=== PATIENT | female | born 2005 | race Caucasian/White ===

== ENCOUNTER 2024-05-23 20:44 | Emergency (ER) | payer MEDICAID, SELFPAY ==
[2024-05-23 20:45] VITALS: BP 147/94; PULSE 125; RESP 18; TEMP 37.7; O2SAT 99; BMI 46.0
[2024-05-23 20:49] VITALS: BP 135/96; PULSE 113; RESP 16; TEMP 37.1; O2SAT 99
[2024-05-23 21:14] LABS: Absolute Lymphocyte Count 1.54 X10^3/uL (0.83-4.51); Absolute Neutrophil Count 9.5 X10^3/uL (2.0-7.7); Basophil# 0.04 X10^3/uL; Basophil% 0.3 % (0-1); Eosinophil# 0.04 X10^3/uL; Eosinophils% 0.3 % (0-5); Hematocrit 39.3 % (37-47); Hemoglobin 12.9 g/dL (12.0-15.0); Lymphocyte # 1.54 X10^3/ul (0.83-4.51); Lymphocyte % 13.2 % (19-41); Mean Corp Hgb Conc 32.8 g/dL (32-36); Mean Corpuscular Hgb 28.9 pg (27.0-32.0); Mean Corpuscular Volume 88.1 fL (81-99); Mean Platelet Vol. 10.4 fl (6.2-12.0); Monocyte# 0.49 X10^3/uL; Monocyte% 4.2 % (0-10); NRBC Flagged by Analyzer 0 % (0-5); Neutrophil % 81.7 % (47-70); Platelet Count 202 K/mm3 (150-450); RBC Distribution Width CV 12.2 % (11.6-14.6); RBC Distribution Width SD 39.2 fl (35.1-43.9); Red Blood Count 4.46 M/mm3 (4.2-5.4); White Blood Count 11.7 K/mm3 (4.4-11.0)
[2024-05-23 21:31] LABS: Internal QC Validated? YES +Cl - CLEAR BKGD; Pregnancy, Serum, hCG Quali. NEGATIVE Negative; Record Kit Lot#, Serum Preg. 772476
[2024-05-23 21:33] LABS: ALB/GLOB Ratio 0.9 RATIO (0.9-2.4); AST(SGOT) 12 U/L (15-37); Alanine Aminotransfer ALT/SGPT 20 U/L (13-56); Albumin, Serum 3.5 g/dL (3.2-5.0); Alkaline Phosphatase 99 U/L (45-117); Anion Gap 7 (5-15); BUN 12 mg/dL (7-18); Calcium,Total 9.3 mg/dL (8.5-10.1); Chloride 105 mmol/L (98-107); EST Glomerular Filtration Rate 75 mL/min (>60); Est Glom Filt Rate - Afr Amer 90 mL/min (>60); Estimated Creatinine Clearance 132.27 ml/min; Globulin 4.1 g/dL (2.2-4.2); Glucose 104 mg/dL (74-106); Potassium 3.7 mmol/L (3.5-5.1); Protein, Total 7.6 g/dL (6.4-8.2); Sodium Level 137 mmol/L (136-145)
[2024-05-23 21:36] LABS: Lactic Acid 0.9 mmol/L (0.4-1.9)
[2024-05-23 21:37] LABS: Bacteria 0 SEEN /hpf (None Seen); Mucous, Urine 0 SEEN /hpf (<or=2+)
[2024-05-23 21:39] LABS: Color, Urine Red (Yellow); Glucose, Dipstick Normal (Normal); Ketone-Dipstick Negative (Negative); Leukocyte Esterase-Dipstick 500 /ul (Negative); Nitrite-Dipstick Negative (Negative); Occult Blood-Urine 250 /ul (Negative); Protein-Dipstick 100 mg/dl (Negative); Urine Bilirubin Dipstick Negative (Negative); Urine Clarity Cloudy (Clear); Urine Urobilinogen Normal (Normal)
[2024-05-23 21:49] VITALS: BP 140/91; PULSE 110; RESP 18; TEMP 36.9; O2SAT 99
--- NOTE | 2024-05-23 22:02 | EX.ED.DYSGE1 ---
HPI History of Present Illness Chief Complaint: Fever Informant: patient and parent Narrative Narrative: History of developmental disorder here with mother for evaluation recurrent fever. States 3 days ago while going to adult daycare had a fever 101. She went home that day was better by evening. Today patient reports headache, mother states rechecked her temperature is even had a temp of 101 again. Status post Advil and Tylenol after recheck temperature which was 100. No vomiting diarrhea. No cough. No muscle aches. Initial triage note reported patient stating it hurts to pee. However patient denies this in the room. No abdominal pain. There is been sick contacts at the adult daycare with a COVID outbreak. Mother did a rapid test at home which was negative. [facility] Medical History PDD (pervasive developmental disorder) Home Medications ?Medication ?Instructions ?Recorded ?Last Taken ?Type diphenhydramine HCl 25 mg capsule 25 mg PO 4X/DAY ##14 05/02/17 Unknown Rx (Banophen) famotidine 20 mg tablet (Pepcid) 20 mg PO BID #8 tabs 05/02/17 Unknown Rx prednisone 20 mg tablet 40 mg (2 x 20 mg) PO DAILY@0800 ##8 05/02/17 Unknown Rx cefdinir 300 mg capsule 300 mg PO Q12H #14 caps 05/23/24 Unknown Rx Allergy/AdvReac Type Severity Reaction Status Date / Time No Known Allergies Allergy Verified 05/23/24 20:45 Social History Smoking Status: Never smoker [facility] ED Constitutional Constitutional ED: Reports fever(s); Denies chills or sweats Eyes Eyes: Denies change in vision ENT ENT ED: Denies dysphagia or sore throat Cardiovascular Cardiovascular: Denies chest pain, leg edema, palpitations or racing heartbeat Respiratory/Chest Respiratory/Chest: Denies cough, dyspnea or dyspnea on exertion Gastrointestinal Gastrointestinal: Denies abdominal pain, diarrhea, nausea or vomiting Genitourinary Genitourinary ED: Denies dysuria, hematuria or urinary frequency Musculoskeletal Musculoskeletal: Denies back pain, extremity pain or neck pain Integumentary Denies rash or wounds Neurologic Neurologic: Reports headache(s); Denies paresthesias or weakness EXAM Physical Exam Const Vital Signs: 05/23/24 20:45 05/23/24 20:49 05/23/24 20:49 Temperature 99.9 F H 98.8 F Temperature Source Oral Oral Pulse Rate 125 H 113 H Respiratory Rate 18 16 Respiratory Effort Blood Pressure 147/94 H 135/96 H Blood Pressure Mean 111 109 Pulse Ox 99 99 Oxygen Delivery Method Room Air Room Air 05/23/24 21:46 05/23/24 21:49 05/23/24 23:29 Temperature 98.5 F 98.6 F Temperature Source Oral Pulse Rate 110 H 85 Respiratory Rate 18 16 Respiratory Effort Normal Blood Pressure 140/91 H 141/77 H Blood Pressure Mean 107 98 Pulse Ox 99 99 Oxygen Delivery Method Positive well nourished and well developed General Appearance ED: well developed and NAD HEENT Reports TM's clear and moist mucous membranes HEENT Narrative: Normal TMs, no posterior pharyngeal erythema. normocephalic and atraumatic Tympanic Membrane ED: Yes TM's clear Eyes EOMs intact bilaterally and conjunctivae normal General Eye ED: Yes normal appearance of both eyes Neck no lymphadenopathy and supple Neck Narrative: No meningismus General: Negative for tenderness Chest Wall Chest: Negative for tenderness Resp normal respiratory effort and normal air movement Effort and Inspection: symmetric chest movement; Negative for respiratory distress Cardio regular rhythm and no murmurs Rate: tachycardic Peripheral Pulses: pulses 2+ throughout GI normal to inspection, nondistended, normoactive bowel sounds and non-tender Palpation: Negative for guarding or rebound tenderness present Back/Spine no CVA tenderness and no thoracic nor lumbar tenderness Extremity normal to inspection General Extremety ED: Negative for edema or tenderness General Extremity: Negative for edema Neuro oriented x3, CN's II-XII intact bilaterally and no sensory deficits noted Sensorium / Orientation: awake and alert Skin no rashes or lesions noted and no wounds MDM MDM MDM Narrative Medical decision making narrative: Interventions / MDM: Differential diagnosis: Febrile illness, viral illness, UTI Diagnosis considered but do not suspect: No clinical meningitis My EKG interpretation: N/A Imaging independently reviewed and interpreted by myself: N/A External documents reviewed: N/A Test considered but not ordered:N/A ED course: Patient initial temp of 99 in the ED which improved without any additional treatment. Triage protocol labs ordered due to busy department white count 11.7 hemoglobin 12.9. Lactic acid 0.9. Creatinine 1.0. hCG negative. Awaiting urine results. Will send for PCR COVID flu and RSV testing. Heart rate noted at 110, will give gentle fluids. Urine positive for infection with noting gross hematuria. Mother reports she is on her menstrual period. With her reported fever and UTI, was treated for complicated UTI. Urine culture sent. She is covered with cefdinir. COVID, influenza, RSV was negative. Return precautions discussed with mother otherwise outpatient follow-up with her doctors. Re-evaluation: stable Disposition discussed with patient/family/significant other: Patient and mother Case discussed with consulting clinician: N/A This note was generated with [employer] dictation software. It may contain incorrect words, spelling, and punctuation that were not noted in checking the note before signing. Lab Data Attestation: I reviewed the patient's lab results. Labs: Laboratory Results - last 24 hr 05/23/24 05/23/24 21:05 21:16 WBC 11.7 H RBC 4.46 Hgb 12.9 Hct 39.3 MCV 88.1 MCH 28.9 MCHC 32.8 RDW Std Deviation 39.2 RDW Coeff of Johnna 12.2 Plt Count 202 MPV 10.4 Immature Gran % (Auto) 0.300 Neut % (Auto) 81.7 H Lymph % (Auto) 13.2 L [place] % (Auto) 4.2 Eos % (Auto) 0.3 Baso % (Auto) 0.3 Absolute Neuts (auto) 9.5 H Absolute Lymphs (auto) 1.54 Nucleated RBC % 0 Sodium 137 Potassium 3.7 Chloride 105 Carbon Dioxide 25.0 Anion Gap 7 BUN 12 Creatinine 1.00 Estim Creat Clear Calc 132.27 Est GFR (MDRD) Af Amer 90 Est GFR (MDRD) Non-Af 75 BUN/Creatinine Ratio 12.0 Glucose 104 Lactic Acid 0.9 Calcium 9.3 Total Bilirubin 0.50 AST 12 L ALT 20 Alkaline Phosphatase 99 Total Protein 7.6 Albumin 3.5 Globulin 4.1 Albumin/Globulin Ratio 0.9 Serum , Qual NEGATIVE Urine Color Red Urine Clarity Cloudy Urine pH 6.0 Ur Specific [place] 1.010 Urine Protein 100 H Urine Glucose (UA) Normal Urine Ketones Negative Urine Occult Blood 250 H Urine Nitrite Negative Urine Bilirubin Negative Urine Urobilinogen Normal Ur Leukocyte Esterase 500 H Urine RBC > 100 SEEN Urine WBC 10-25 SEEN Ur Squamous Epith Cells 5-10 SEEN Urine Bacteria 0 SEEN Urine Mucus 0 SEEN Discharge Plan Triage Chief Complaint: Fever ED Provider: Garrick Jeffery Dx/Rx/DC Orders Clinical Impression: Complicated urinary tract infection, Fever Instructions: Urinary Tract Infections in Women, ED Fever Control (Adult) Prescriptions: New cefdinir 300 mg capsule 300 mg PO Q12H Qty: 14 0RF No Action prednisone 20 MG tablet 40 mg PO DAILY@0800 Qty: 8 0RF famotidine [Pepcid] 20 MG tablet 20 mg PO BID Qty: 8 0RF diphenhydramine HCl [Banophen] 25 MG capsule 25 mg PO 4X/DAY Qty: 14 0RF Primary Care Provider: Jack John NP Referrals: Jack John NP, [facility] [Primary Care Provider] - 1 Week Activity Restrictions/Additional Instructions: COVID, influenza, RSV negative. Urine with infection. Labs are stable. Take and finish antibiotic as prescribed. Follow-up with your doctor. Print Language: British Disposition Disposition: Home, Self Care Discharge Date/Time: 05/23/24 23:36
[2024-05-23 22:11] LABS: Red Blood Cells-Urine > 100 SEEN /hpf (0-5)
[2024-05-23 22:12] LABS: White Blood Cells 10-25 SEEN /hpf (0-5)
[2024-05-23 22:13] LABS: Squamous Epithelial Cells - UA 5-10 SEEN /hpf (5-10)
[2024-05-23] MEDS: 0.9% Normal Saline (500mL Bag) 500 ML 999 ML IV (22:35)
[2024-05-23 23:29] VITALS: BP 141/77; PULSE 85; RESP 16; TEMP 37; O2SAT 99
[2024-05-23] MEDS: Cefdinir 300 MG Capsule PO (23:34)
== END 2024-05-23 23:36 | disposition home or self-care (01) ==
PROVIDERS: Emergency Provider Emergency Medicine; PCP Nurse Practitioner Family; Visit Provider Emergency Medicine
DX: N39.0 Urinary tract infection, site not specified (principal); F84.8 Other pervasive developmental disorders; Z20.828 Contact with and (suspected) exposure to other viral communicable diseases
CPT/HCPCS: 80053; 81001; 83605; 84703; 85025; 87086; 87088; 87631; 94760; 96360; 99283; J7040; A4216